=== PATIENT | male | born 1990 ===

== ENCOUNTER 2016-12-06 17:30 | Inpatient (IN) | payer BC, MEDICAID, OTHER ==
[2016-12-06 17:31] VITALS: BMI 28.2
[2016-12-06 17:56] VITALS: RESP 20
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
[2016-12-06 18:58] LABS: BASO # 0.2 K/uL (0.0-0.2); BASO % 0.8 % (0.0-2.0); EOS % 0.2 % (0.0-4.0); HEMATOCRIT 39.9 % (35.0-51.0); LYMPH # 2.4 K/uL (1.0-4.3); LYMPH % 12.1 % (20.0-40.0); MEAN CELL VOLUME 86.9 fL (80.0-94.0); MEAN CORPUSCULAR HEMOGLOBIN 30.1 pg (27.0-31.0); MEAN CORPUSCULAR HGB CONC 34.7 g/dL (33.0-37.0); MEAN PLATELET VOLUME 7.9 fL (7.2-11.7); MONO # 2.3 K/uL (0.0-0.8); MONO % 11.4 % (0.0-10.0); RED CELL DISTRIBUTION WIDTH 12.8 % (11.5-14.5)
[2016-12-06 19:05] LABS: CHLORIDE 93 mmol/L (98-107); POTASSIUM 3.7 mmol/L (3.6-5.2); SODIUM 131 mmol/L (132-148)
[2016-12-06 19:07] LABS: ALB/GLOB RATIO 1.5 (1.0-2.1); AST/SGOT 275 U/L (17-59); BILIRUBIN,TOTAL 1.5 mg/dL (0.2-1.3); CARBON DIOXIDE 20 mmol/L (22-30); GFR AFRICAN-AMERICAN > 60; TOTAL PROTEIN 7.6 g/dL (6.3-8.3); URINE BILIRUBIN NEGATIVE (NEGATIVE); URINE BLOOD 1+ (NEGATIVE); URINE COLOR Yellow (YELLOW); URINE GLUCOSE (UA) NORMAL (Normal); URINE KETONE 1+ mg/dL (NEGATIVE); URINE LEUKOCYTE ESTERASE NEG Leu/uL (Negative); URINE PROTEIN NEGATIVE (NEGATIVE); URINE UROBILINOGEN NORMAL mg/dL (0.2-1.0); WBC URINE < 1 /hpf (0-5)
[2016-12-06 19:08] LABS: ALKALINE PHOSPHATASE 72 U/L (38-126); ALT/SGPT 102 U/L (21-72); BLOOD UREA NITROGEN 12 mg/dL (9-20); CALCIUM 9.2 mg/dl (8.6-10.4); GLUCOSE,RANDOM 79 mg/dL (75-110)
[2016-12-06] MEDS: Divalproex 500 mg DR Tab PO SCH (23:51)
[2016-12-07 07:27] LABS: HEMATOCRIT 39.7 % (35.0-51.0); MEAN CELL VOLUME 87.6 fL (80.0-94.0); MEAN CORPUSCULAR HGB CONC 34.2 g/dL (33.0-37.0); MEAN PLATELET VOLUME 7.7 fL (7.2-11.7)
[2016-12-07 07:34] LABS: WHITE BLOOD COUNT 9.9 K/uL (4.8-10.8)
[2016-12-07 07:36] LABS: CHLORIDE 96 mmol/L (98-107); SODIUM 134 mmol/L (132-148)
[2016-12-07 07:37] LABS: POTASSIUM 3.7 mmol/L (3.6-5.2)
[2016-12-07 07:38] LABS: GFR AFRICAN-AMERICAN > 60
[2016-12-07 07:39] LABS: ALB/GLOB RATIO 1.3 (1.0-2.1); ALKALINE PHOSPHATASE 64 U/L (38-126); AST/SGOT 155 U/L (17-59); BILIRUBIN,TOTAL 1.2 mg/dL (0.2-1.3); BLOOD UREA NITROGEN 12 mg/dL (9-20); CARBON DIOXIDE 26 mmol/L (22-30); GLUCOSE,RANDOM 87 mg/dL (75-110); TOTAL PROTEIN 7.1 g/dL (6.3-8.3)
[2016-12-07 07:40] LABS: ALT/SGPT 85 U/L (21-72); CALCIUM 8.7 mg/dl (8.6-10.4)
[2016-12-07] MEDS: Divalproex 500 mg DR Tab PO SCH ×2 (10:53→18:09)
--- NOTE | 2016-12-07 10:53 | RAD ---
HISTORY: Pneumonia COMPARISON: 09/07/2013 TECHNIQUE: Chest PA and lateral FINDINGS: LUNGS: No active pulmonary disease. PLEURA: No significant pleural effusion identified. No pneumothorax apparent. CARDIOVASCULAR: Normal. OSSEOUS STRUCTURES: No significant abnormalities. VISUALIZED UPPER ABDOMEN: Normal. OTHER FINDINGS: None. IMPRESSION: No active disease.
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
--- NOTE | 2016-12-07 22:47 | CP.PCM.HP ---
Present on Admission - Present on Admission Any Indicators Present on Admission: No Past Patient History - Infectious Disease Hx of Infectious Diseases: None - Tetanus Immunizations Tetanus Immunization: Unknown - Past Medical History & Family History Past Medical History?: Yes - Past Social History Smoking Status: Heavy Smoker > 10 Cigarettes Daily - CARDIAC Hx Cardiac Disorders: No - PULMONARY Hx Respiratory Disorders: No - NEUROLOGICAL Hx Neurological Disorder: Yes Hx Seizures: Yes - HEENT Hx HEENT Problems: No - RENAL Hx Chronic Kidney Disease: No - ENDOCRINE/METABOLIC Hx Endocrine Disorders: No - HEMATOLOGICAL/ONCOLOGICAL Hx Blood Disorders: No - INTEGUMENTARY Hx Dermatological Problems: Yes Hx Hammer: Yes - MUSCULOSKELETAL/RHEUMATOLOGICAL Hx Musculoskeletal Disorders: No Hx Falls: No - GASTROINTESTINAL Hx Gastrointestinal Disorders: No - GENITOURINARY/GYNECOLOGICAL Hx Genitourinary Disorders: No - PSYCHIATRIC Hx Psychophysiologic Disorder: Yes Hx Substance Use: Yes (pt reported thta he quitted) - SURGICAL HISTORY Hx Surgeries: Yes Hx Herniorrhaphy: Yes - ANESTHESIA Hx Anesthesia: Yes Hx Anesthesia Reactions: No Hx Malignant Hyperthermia: No Meds Allergies/Adverse Reactions: Allergies Allergy/AdvReac Type Severity Reaction Status Date / Time No Known Allergies Allergy Verified 12/06/16 17:45 Results - Vital Signs Recent Vital Signs: Last Vital Signs Temp 98.3 F 12/07/16 15:30 Pulse 93 H 12/07/16 15:30 Resp 20 12/07/16 15:30 BP 132/81 12/07/16 15:30 Pulse Ox 96 12/07/16 15:30 - Labs Result Diagrams: 12/07/16 07:16 12/07/16 07:16 Labs: Laboratory Results - last 24 hr 12/07/16 12/07/16 07:16 07:16 WBC 9.9 D RBC 4.53 Hgb 13.6 Hct 39.7 MCV 87.6 MCH 30.0 MCHC 34.2 RDW 13.0 Plt Count 200 MPV 7.7 Sodium 134 Potassium 3.7 Chloride 96 L Carbon Dioxide 26 Anion Gap 16 BUN 12 Creatinine 0.8 Est GFR ( Amer) > 60 Est GFR (Non-Af Amer) > 60 Random Glucose 87 Calcium 8.7 Total Bilirubin 1.2 AST 155 H D ALT 85 H Alkaline Phosphatase 64 Total Protein 7.1 Albumin 4.0 Globulin 3.1 Albumin/Globulin Ratio 1.3
[2016-12-08] MEDS: Divalproex 500 mg DR Tab PO SCH ×2 (09:37→18:07)
[2016-12-08] MEDS ORDERED: Vitamins A & D Oint UD Foilpak TOP PRN (09:45)
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
[2016-12-08 17:39] VITALS: BP 151/77; PULSE 94; TEMP 99.2; O2SAT 96
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
[2016-12-09] MEDS ORDERED: Pneumococcal 23-Valent Vaccine IM ONE (10:00)
== END 2016-12-08 18:30 | disposition home or self-care (01) | DRG 889 ==
LOC: C.ER 17:30 → C.9E 22:15 → C.3T 22:54
PROVIDERS: ADMIT Internal Medicine; ATTEND Internal Medicine
DX: G40.909 Epilepsy, unspecified, not intractable, without status epilepticus (principal); F15.90 Other stimulant use, unspecified, uncomplicated; T42.6X6A Underdosing of other antiepileptic and sedative-hypnotic drugs, initial encounter; Z91.128 Patient's intentional underdosing of medication regimen for other reason; F17.210 Nicotine dependence, cigarettes, uncomplicated

== ENCOUNTER 2017-10-02 09:21 | Inpatient (IN) | payer MEDICARE, MEDICAID ==
[2017-10-02 09:21] VITALS: BMI 28.2
[2017-10-02] MEDS ORDERED: levETIRAcetam 500 MG in Sodium Chloride 0.9% 100 ML IVPB STA (09:46)
[2017-10-02 10:10] LABS: BASO # 0.1 K/uL (0.0-0.2); BASO % 0.5 % (0.0-2.0); EOS # 0.2 K/uL (0.0-0.7); EOS % 1.3 % (0.0-4.0); HEMOGLOBIN 14.8 g/dL (12.0-18.0); LYMPH # 1.4 K/uL (1.0-4.3); LYMPH % 9.7 % (20.0-40.0); MEAN CORPUSCULAR HEMOGLOBIN 30.9 pg (27.0-31.0); MEAN CORPUSCULAR HGB CONC 34.3 g/dL (33.0-37.0); MONO # 0.9 K/uL (0.0-0.8); MONO % 6.4 % (0.0-10.0); NEUT # 12.2 K/uL (1.8-7.0); NEUT % 82.1 % (50.0-75.0); NRBC % 0.1 % (0.0-2.0); PLATELET COUNT 277 K/uL (130-400); RBC 4.79 Mil/uL (4.40-5.90); RED CELL DISTRIBUTION WIDTH 13.7 % (11.5-14.5)
[2017-10-02 10:13] LABS: MEAN CELL VOLUME 90.1 fL (80.0-94.0); WHITE BLOOD COUNT 14.9 K/uL (4.8-10.8)
--- NOTE | 2017-10-02 10:19 | RAD ---
PROCEDURE: Radiographs of the Right Shoulder HISTORY: seizure COMPARISON: No prior. FINDINGS: BONES: Anterior dislocation at glenohumeral articulation with large displaced greater tuberosity fracture fragment. . JOINTS: Acromioclavicular joint preserved. SOFT TISSUES: Normal. OTHER FINDINGS: None. IMPRESSION: Anterior glenohumeral dislocation with greater tuberosity fracture enlarged displaced fragment.
[2017-10-02 10:22] LABS: ALB/GLOB RATIO 1.4 (1.0-2.1); ALBUMIN 4.8 g/dL (3.5-5.0); ALT/SGPT 32 U/L (21-72); AST/SGOT 34 U/L (17-59); BLOOD UREA NITROGEN 8 mg/dL (9-20); CALCIUM 9.7 mg/dl (8.6-10.4); GFR AFRICAN-AMERICAN > 60; GFR NON-AFRICAN AMERICAN > 60
[2017-10-02 10:28] LABS: LYMPHOCYTE 5 % (20-40); MONOCYTE 4 % (0-10); NEUTROPHIL 91 % (50-75); TOTAL CELLS COUNTED 100
[2017-10-02 10:31] LABS: PLATELET ESTIMATE NORMAL (NORMAL)
[2017-10-02] MEDS ORDERED: Morphine 4 MG/ML VIAL IV STA (11:05)
[2017-10-02] MEDS ORDERED: Morphine 4 MG/ML VIAL ONE (11:09)
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
[2017-10-02] MEDS ORDERED: Valproate 1,000 MG in Sodium Chloride 0.9% 100 ML IVPB ONE (12:12)
--- NOTE | 2017-10-02 12:38 | CT ---
PROCEDURE: CT HEAD WITHOUT CONTRAST. HISTORY: dizziness COMPARISON: 12/17/2019 50 TECHNIQUE: Axial computed tomography images were obtained through the head/brain without intravenous contrast. Radiation dose: Total exam DLP = 1573.86 mGy-cm. This CT exam was performed using one or more of the following dose reduction techniques: Automated exposure control, adjustment of the mA and/or kV according to patient size, and/or use of iterative reconstruction technique. FINDINGS: HEMORRHAGE: No intracranial hemorrhage. BRAIN: No mass effect or edema. No atrophy or chronic microvascular ischemic changes. VENTRICLES: Unremarkable. No hydrocephalus. CALVARIUM: Unremarkable. PARANASAL SINUSES: Unremarkable as visualized. No significant inflammatory changes. MASTOID AIR CELLS: Unremarkable as visualized. No inflammatory changes. OTHER FINDINGS: None. IMPRESSION: Normal CT of the Head. No intracranial mass, hemorrhage or evidence of acute infarct. No interval change.
[2017-10-02 13:10] LABS: PROTHROMBIN TIME 11.3 SECONDS (9.7-12.2)
--- NOTE | 2017-10-02 13:12 | CP.PCM.CON ---
History of Present Illness - History of Present Illness History of Present Illness: 27 yr old male with pmh of epilepsy, syndrome not known as of yet, who has a history of compliance with keppra and depakote, who is here due to non compliance with medications. states clearly that he did not take his medications and does not take them when he drinks alcohol. He came into the ER after having had a large generalized seizure, during which he suffered right humeral fracture, now requiring possible fixation, and right shoulder dislocation. PMH/PSH: Epilepsy FH/SH: noncontributory. All: nkda Meds: depakote, keppra--dose as per computer on exam: Normal neurological examination. Past Patient History - Infectious Disease Hx of Infectious Diseases: None - Tetanus Immunizations Tetanus Immunization: Unknown - Past Medical History & Family History Past Medical History?: Yes - Past Social History Smoking Status: Heavy Smoker > 10 Cigarettes Daily - CARDIAC Hx Pacemaker: No - PULMONARY Hx Respiratory Disorders: No - NEUROLOGICAL Hx Seizures: Yes - HEENT Hx HEENT Problems: No - RENAL Hx Chronic Kidney Disease: No - ENDOCRINE/METABOLIC Hx Endocrine Disorders: No - HEMATOLOGICAL/ONCOLOGICAL Hx Blood Disorders: No - INTEGUMENTARY Hx Dermatological Problems: Yes Hx Hammer: Yes - MUSCULOSKELETAL/RHEUMATOLOGICAL Hx Musculoskeletal Disorders: No Hx Falls: No - GASTROINTESTINAL Hx Gastrointestinal Disorders: No - GENITOURINARY/GYNECOLOGICAL Hx Genitourinary Disorders: No - PSYCHIATRIC Hx Schizophrenia: Yes Hx Substance Use: Yes (pt reported thta he quitted) - SURGICAL HISTORY Hx Surgeries: Yes Hx Herniorrhaphy: Yes - ANESTHESIA Hx Anesthesia: Yes Hx Anesthesia Reactions: No Hx Malignant Hyperthermia: No Meds Allergies/Adverse Reactions: Allergies Allergy/AdvReac Type Severity Reaction Status Date / Time No Known Allergies Allergy Verified 10/02/17 09:31 - Medications Medications: Current Medications Benztropine Mesylate (Cogentin) 2 mg PO BID GIDEON Divalproex Sodium (Depakote Dr) 500 mg PO BID GIDEON Valproate Sodium 1,000 mg/ (Sodium Chloride) 110 mls @ 100 mls/hr IVPB ONCE ONE Stop: 10/02/17 13:17 Ketorolac Tromethamine (Toradol) 30 mg IV Q6 PRN PRN Reason: Pain, severe (8-10) Ketorolac Tromethamine (Toradol) 15 mg IVP Q6 PRN PRN Reason: Pain, moderate (4-7) Levetiracetam (Keppra) 500 mg PO BID GIDEON Nicotine (Nicoderm Cq) 1 patch TD DAILY GIDEON Results - Vital Signs Recent Vital Signs: Last Vital Signs Temp 97.7 F 10/02/17 09:32 Pulse 72 10/02/17 12:54 Resp 16 10/02/17 12:54 BP 132/103 H 10/02/17 12:54 Pulse Ox 98 10/02/17 12:56 - Labs Result Diagrams: 10/02/17 10:04 10/02/17 10:04 Labs: Laboratory Results - last 24 hr 10/02/17 10/02/17 10/02/17 10:04 10:04 10:04 WBC 14.9 H D RBC 4.79 Hgb 14.8 Hct 43.2 MCV 90.1 D MCH 30.9 MCHC 34.3 RDW 13.7 Plt Count 277 MPV 8.0 Neut % (Auto) 82.1 H Lymph % (Auto) 9.7 L [place] % (Auto) 6.4 Eos % (Auto) 1.3 Baso % (Auto) 0.5 Neut # (Auto) 12.2 H Lymph # (Auto) 1.4 [place] # (Auto) 0.9 H Eos # (Auto) 0.2 Baso # (Auto) 0.1 Neutrophils % (Manual) 91 H Lymphocytes % (Manual) 5 L Monocytes % (Manual) 4 Platelet Estimate Normal RBC Morphology Normal Sodium 139 Potassium 4.2 Chloride 101 Carbon Dioxide 19 L Anion Gap 23 H BUN 8 L Creatinine 1.0 Est GFR ( Amer) > 60 Est GFR (Non-Af Amer) > 60 POC Glucose (mg/dL) Random Glucose 144 H Calcium 9.7 Total Bilirubin 0.8 AST 34 ALT 32 Alkaline Phosphatase 96 Total Creatine Kinase 662 H Total Protein 8.1 Albumin 4.8 Globulin 3.3 Albumin/Globulin Ratio 1.4 Valproic Acid < 10.0 L 10/02/17 10:07 WBC RBC Hgb Hct MCV MCH MCHC RDW Plt Count MPV Neut % (Auto) Lymph % (Auto) [place] % (Auto) Eos % (Auto) Baso % (Auto) Neut # (Auto) Lymph # (Auto) [place] # (Auto) Eos # (Auto) Baso # (Auto) Neutrophils % (Manual) Lymphocytes % (Manual) Monocytes % (Manual) Platelet Estimate RBC Morphology Sodium Potassium Chloride Carbon Dioxide Anion Gap BUN Creatinine Est GFR ( Amer) Est GFR (Non-Af Amer) POC Glucose (mg/dL) 128 H Random Glucose Calcium Total Bilirubin AST ALT Alkaline Phosphatase Total Creatine Kinase Total Protein Albumin Globulin Albumin/Globulin Ratio Valproic Acid - Imaging and Cardiology CT scan - head Status: Image reviewed by me, Report reviewed by me (ct head normal. ) Assessment & Plan - Assessment and Plan (Free Text) Assessment: 27 yr old male with known epilepsy, who is here after having several seizures due to noncompliance. We will load him with antiepileptic medications, check levels and restart his home meds. Plan: 1. Continue on depakote 500 mg bid 2. Continue on keppra 500 mg bid 3. it would be advisable for patient to be on one medication, depakote. However , he does not want to change his regimen. 4. EEG. Thank you for this interesting consult. Md Kizzy, DPN
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
--- NOTE | 2017-10-02 13:56 | CP.PCM.CON ---
<Charissa Lincoln - Last Filed: 10/02/17 15:42> History of Present Illness - History of Present Illness History of Present Illness: ICU consult note: Patient is a 27 year old male with a past medical history of Epilepsy, Hammer and Schizophrenia who presented to the ED by EMS for witnessed seizure. Patient stated he stopped taking his home medications because he has been drinking alcohol and did not want to mix that with his medications. When patient arrived, his right arm was in a sling. When asked how he injured his shoulder, he stated he believes he injured his shoulder during a seizure. He denied focal deficits, headache, vision changes, fever, chills, vomiting, shortness of breath, chest pain, incontinence. He denied auditory or visual hallucinations. ICU was called to evaluate the patient in the ED. Patient had a witnessed seizure in the ED was is currently post-ictal. Will admit to the ICU for closer monitoring. ED course: Valproic Acid 1000mg IV x1, Keppra 500mg IV x 1, Ativan 2mg IVP x 1, Torodol 30mg IVP, Morphine 4mg IVP PMD: Dr Conrad Casas Allergies: NKDA Past Medical Hx: Epilepsy, Schizophrenia, Alcohol abuse Medications: Keppra 500mg PO BID, Depakote DR 500mg PO BID, Cogentin 2mg PO BID Past Surgical Hx: Left inguinal hernia repair Social Hx: smokes 1ppd for last 10 years, drinks "a couple" of beers daily, occasional marijuana use, denies other illicit drugs, lives alone, collects social security due to epilepsy Family Hx: Denies Code Status: Full Code Past Patient History - Infectious Disease Hx of Infectious Diseases: None - Tetanus Immunizations Tetanus Immunization: Unknown - Past Medical History & Family History Past Medical History?: Yes - Past Social History Smoking Status: Heavy Smoker > 10 Cigarettes Daily - CARDIAC Hx Pacemaker: No - PULMONARY Hx Respiratory Disorders: No - NEUROLOGICAL Hx Seizures: Yes - HEENT Hx HEENT Problems: No - RENAL Hx Chronic Kidney Disease: No - ENDOCRINE/METABOLIC Hx Endocrine Disorders: No - HEMATOLOGICAL/ONCOLOGICAL Hx Blood Disorders: No - INTEGUMENTARY Hx Dermatological Problems: Yes Hx Hammer: Yes - MUSCULOSKELETAL/RHEUMATOLOGICAL Hx Musculoskeletal Disorders: No Hx Falls: No - GASTROINTESTINAL Hx Gastrointestinal Disorders: No - GENITOURINARY/GYNECOLOGICAL Hx Genitourinary Disorders: No - PSYCHIATRIC Hx Schizophrenia: Yes Hx Substance Use: Yes (pt reported thta he quitted) - SURGICAL HISTORY Hx Surgeries: Yes Hx Herniorrhaphy: Yes - ANESTHESIA Hx Anesthesia: Yes Hx Anesthesia Reactions: No Hx Malignant Hyperthermia: No Meds Allergies/Adverse Reactions: Allergies Allergy/AdvReac Type Severity Reaction Status Date / Time No Known Allergies Allergy Verified 10/02/17 09:31 - Medications Medications: Current Medications Benztropine Mesylate (Cogentin) 2 mg PO BID [facility] Divalproex Sodium (Depakote Dr) 500 mg PO BID [facility] Folic Acid (Folic Acid) 1 mg PO DAILY [facility] Ketorolac Tromethamine (Toradol) 30 mg IV Q6 PRN PRN Reason: Pain, severe (8-10) Ketorolac Tromethamine (Toradol) 15 mg IVP Q6 PRN PRN Reason: Pain, moderate (4-7) Levetiracetam (Keppra) 500 mg PO BID [facility] Lorazepam (Ativan) 2 mg IVP Q6H PRN PRN Reason: Seizure activity Multivitamins (Hexavitamin) 1 tab PO DAILY [facility] Nicotine (Nicoderm Cq) 1 patch TD DAILY [facility] Thiamine HCl (Vitamin B1 Tab) 100 mg PO DAILY [facility] Physical Exam - Constitutional Appears: No Acute Distress Additional comments: Post-ictal - Head Exam Head Exam: ATRAUMATIC, NORMAL INSPECTION - Eye Exam Eye Exam: EOMI, Normal appearance - ENT Exam ENT Exam: Mucous Membranes Moist - Respiratory Exam Respiratory Exam: Clear to Auscultation Bilateral, NORMAL BREATHING PATTERN. absent: Rales, Rhonchi, Wheezes - Cardiovascular Exam Cardiovascular Exam: REGULAR RHYTHM, +S1, +S2 - GI/Abdominal Exam GI & Abdominal Exam: Normal Bowel Sounds, Soft. absent: Rebound, Rigid, Tenderness - Extremities Exam Extremities exam: Positive for: normal inspection - Neurological Exam Additional comments: Post-ictal - Psychiatric Exam Additional comments: Unable to assess - Skin Skin Exam: Dry, Normal Color, Warm Results - Vital Signs Recent Vital Signs: Last Vital Signs Temp 97.7 F 10/02/17 09:32 Pulse 108 H 10/02/17 13:26 Resp 30 H 10/02/17 13:26 BP 166/101 H 10/02/17 13:26 Pulse Ox 99 10/02/17 13:26 - Labs Result Diagrams: 10/02/17 10:04 10/02/17 10:04 Labs: Laboratory Results - last 24 hr 10/02/17 10/02/17 10/02/17 10:04 10:04 10:04 WBC 14.9 H D RBC 4.79 Hgb 14.8 Hct 43.2 MCV 90.1 D MCH 30.9 MCHC 34.3 RDW 13.7 Plt Count 277 MPV 8.0 Neut % (Auto) 82.1 H Lymph % (Auto) 9.7 L Desha % (Auto) 6.4 Eos % (Auto) 1.3 Baso % (Auto) 0.5 Neut # (Auto) 12.2 H Lymph # (Auto) 1.4 Desha # (Auto) 0.9 H Eos # (Auto) 0.2 Baso # (Auto) 0.1 Neutrophils % (Manual) 91 H Lymphocytes % (Manual) 5 L Monocytes % (Manual) 4 Platelet Estimate Normal RBC Morphology Normal PT INR APTT Sodium 139 Potassium 4.2 Chloride 101 Carbon Dioxide 19 L Anion Gap 23 H BUN 8 L Creatinine 1.0 Est GFR ( Amer) > 60 Est GFR (Non-Af Amer) > 60 POC Glucose (mg/dL) Random Glucose 144 H Calcium 9.7 Total Bilirubin 0.8 AST 34 ALT 32 Alkaline Phosphatase 96 Total Creatine Kinase 662 H Total Protein 8.1 Albumin 4.8 Globulin 3.3 Albumin/Globulin Ratio 1.4 Valproic Acid < 10.0 L 10/02/17 10/02/17 10/02/17 10:07 12:58 13:41 WBC RBC Hgb Hct MCV MCH MCHC RDW Plt Count MPV Neut % (Auto) Lymph % (Auto) Desha % (Auto) Eos % (Auto) Baso % (Auto) Neut # (Auto) Lymph # (Auto) Desha # (Auto) Eos # (Auto) Baso # (Auto) Neutrophils % (Manual) Lymphocytes % (Manual) Monocytes % (Manual) Platelet Estimate RBC Morphology PT 11.3 INR 1.0 APTT 25 Sodium Potassium Chloride Carbon Dioxide Anion Gap BUN Creatinine Est GFR ( Amer) Est GFR (Non-Af Amer) POC Glucose (mg/dL) 128 H 112 H Random Glucose Calcium Total Bilirubin AST ALT Alkaline Phosphatase Total Creatine Kinase Total Protein Albumin Globulin Albumin/Globulin Ratio Valproic Acid Assessment & Plan - Assessment and Plan (Free Text) Assessment: Patient is a 27 year old male with past medical history of Epilepsy, medication non-compliance, schizophrenia who presented to the ED via EMS for witnessed seizure. While in the ED, patient had another witnessed seizure. Recieved Ativan 2mg x 1. Currently in post-ictal state. Will admit to the ICU for closer monitoring. Neurology: -Patient currently in post ictal state -Patient is on Depakote 500mg BID, Valproic Acid 500mg PO BID at home -Reports that he has been non-complaint with his medications -In the ED, received a bolus of Valproic Acid 1000mg x 1 -Valproic level <10 on admission, f/u am Valproic level -Continue Keppra 500mg PO BID -Continue Depakote DR 500mg PO BID -Ativan 2mg IVP Q6H PRN for seizure activity -CT head: No intracranial mass, hemorrhage or evidence of acute infarct, no interval change -Seizure precautions, aspiration precautions, fall precautions -Continue Neuro checks -EEG ordered -Neurology on consult, Dr Jaramillo, help appreciated Cardiology: -No acute issues at this time Respiratory: -CXR ordered, f/u official read Renal: -No acute issues at this time Heme/onc: -No acute issues at this time Musculoskeletal: -Patient with Rhabdomyolysis -CPK 662 on admission -Continue IV fluids -F/U AM creatinine level -Right shoulder XRAY: anterior glenohumeral dislocation with greater tuberosity fracture enlarged displaced fragment -Pain control: Ketorolac 15mg IVP Q6H PRN for moderate pain, Ketorolac 30mg IVP Q6H PRN for severe pain -If medically stable, plan for OR tomorrow -Orthopedic surgery on consult, Dr Osorio, help appreciated Infectious Disease: -Patient with elevated WBC, currently afebrile -F/U urine cx, blood cx Psychiatry: -Patient with history of schizophrenia -Currently denies auditory/visual hallucinations -Continue Cogentin 2mg PO BID -F/U alcohol level, UDS -Continue Thiamine 100mg PO daily, Multivitamins 1 tab PO daily, Folic acid 1mg PO daily -Ativan 2mg IVP Q6H PRN for withdrawal symptoms -CIWA protocol -Seizure/aspiration precautions -Hx of tobacco dependence, Nicotine patch ordered GI/DVT ppx: -SCDs -No GI ppx indicated at this time <Ronald Swanson S - Last Filed: 10/02/17 17:54> Meds - Medications Medications: Current Medications Benztropine Mesylate (Cogentin) 2 mg PO BID [facility] Divalproex Sodium (Depakote Dr) 500 mg PO BID [facility] Folic Acid (Folic Acid) 1 mg PO DAILY [facility] Lactated Ringer's (Lactated Ringer's) 1,000 mls @ 125 mls/hr IV .Q8H [facility] Last Admin: 10/02/17 14:45 Dose: 125 mls/hr Ketorolac Tromethamine (Toradol) 30 mg IV Q6 PRN PRN Reason: Pain, severe (8-10) Ketorolac Tromethamine (Toradol) 15 mg IVP Q6 PRN PRN Reason: Pain, moderate (4-7) Levetiracetam (Keppra) 500 mg PO BID [facility] Lorazepam (Ativan) 2 mg IVP Q4H PRN PRN Reason: Seizure activity Multivitamins (Hexavitamin) 1 tab PO DAILY [facility] Last Admin: 10/02/17 14:45 Dose: Not Given Nicotine (Nicoderm Cq) 1 patch TD DAILY [facility] Last Admin: 10/02/17 15:03 Dose: 1 patch Pneumococcal Polyvalent Vaccine (Pneumovax 23 Vaccine) 0.5 ml IM .ONCE ONE Stop: 10/04/17 10:01 Thiamine HCl (Vitamin B1 Tab) 100 mg PO DAILY [facility] Last Admin: 10/02/17 14:45 Dose: Not Given Results - Vital Signs Recent Vital Signs: Last Vital Signs Temp 98.5 F 10/02/17 16:00 Pulse 78 10/02/17 17:10 Resp 22 10/02/17 17:10 BP 148/89 10/02/17 16:27 Pulse Ox 97 10/02/17 17:10 - Labs Result Diagrams: 10/02/17 10:04 10/02/17 10:04 Labs: Laboratory Results - last 24 hr 10/02/17 10/02/17 10/02/17 10:04 10:04 10:04 WBC 14.9 H D RBC 4.79 Hgb 14.8 Hct 43.2 MCV 90.1 D MCH 30.9 MCHC 34.3 RDW 13.7 Plt Count 277 MPV 8.0 Neut % (Auto) 82.1 H Lymph % (Auto) 9.7 L Desha % (Auto) 6.4 Eos % (Auto) 1.3 Baso % (Auto) 0.5 Neut # (Auto) 12.2 H Lymph # (Auto) 1.4 Desha # (Auto) 0.9 H Eos # (Auto) 0.2 Baso # (Auto) 0.1 Neutrophils % (Manual) 91 H Lymphocytes % (Manual) 5 L Monocytes % (Manual) 4 Platelet Estimate Normal RBC Morphology Normal PT INR APTT Sodium 139 Potassium 4.2 Chloride 101 Carbon Dioxide 19 L Anion Gap 23 H BUN 8 L Creatinine 1.0 Est GFR ( Amer) > 60 Est GFR (Non-Af Amer) > 60 POC Glucose (mg/dL) Random Glucose 144 H Calcium 9.7 Total Bilirubin 0.8 AST 34 ALT 32 Alkaline Phosphatase 96 Total Creatine Kinase 662 H Total Protein 8.1 Albumin 4.8 Globulin 3.3 Albumin/Globulin Ratio 1.4 Urine Opiates Screen Urine Methadone Screen Ur Barbiturates Screen Valproic Acid < 10.0 L Ur Phencyclidine Scrn Ur Amphetamines Screen U Benzodiazepines Scrn U Oth Cocaine Metabols U Cannabinoids Screen Alcohol, Quantitative 10/02/17 10/02/17 10/02/17 10:07 12:58 13:41 WBC RBC Hgb Hct MCV MCH MCHC RDW Plt Count MPV Neut % (Auto) Lymph % (Auto) Desha % (Auto) Eos % (Auto) Baso % (Auto) Neut # (Auto) Lymph # (Auto) Desha # (Auto) Eos # (Auto) Baso # (Auto) Neutrophils % (Manual) Lymphocytes % (Manual) Monocytes % (Manual) Platelet Estimate RBC Morphology PT 11.3 INR 1.0 APTT 25 Sodium Potassium Chloride Carbon Dioxide Anion Gap BUN Creatinine Est GFR ( Amer) Est GFR (Non-Af Amer) POC Glucose (mg/dL) 128 H 112 H Random Glucose Calcium Total Bilirubin AST ALT Alkaline Phosphatase Total Creatine Kinase Total Protein Albumin Globulin Albumin/Globulin Ratio Urine Opiates Screen Urine Methadone Screen Ur Barbiturates Screen Valproic Acid Ur Phencyclidine Scrn Ur Amphetamines Screen U Benzodiazepines Scrn U Oth Cocaine Metabols U Cannabinoids Screen Alcohol, Quantitative 10/02/17 10/02/17 10/02/17 14:04 14:16 16:12 WBC RBC Hgb Hct MCV MCH MCHC RDW Plt Count MPV Neut % (Auto) Lymph % (Auto) Desha % (Auto) Eos % (Auto) Baso % (Auto) Neut # (Auto) Lymph # (Auto) Desha # (Auto) Eos # (Auto) Baso # (Auto) Neutrophils % (Manual) Lymphocytes % (Manual) Monocytes % (Manual) Platelet Estimate RBC Morphology PT INR APTT Sodium Potassium Chloride Carbon Dioxide Anion Gap BUN Creatinine Est GFR ( Amer) Est GFR (Non-Af Amer) POC Glucose (mg/dL) 97 Random Glucose Calcium Total Bilirubin AST ALT Alkaline Phosphatase Total Creatine Kinase Total Protein Albumin Globulin Albumin/Globulin Ratio Urine Opiates Screen Positive H Urine Methadone Screen Negative Ur Barbiturates Screen Negative Valproic Acid Ur Phencyclidine Scrn Negative Ur Amphetamines Screen Negative U Benzodiazepines Scrn Negative U Oth Cocaine Metabols Positive H U Cannabinoids Screen Positive H Alcohol, Quantitative < 10 Attending/Attestation - Attestation I have personally seen and examined this patient.: Yes I have fully participated in the care of the patient.: Yes I have reviewed all pertinent clinical information: Yes Notes (Text): 10/02/17 17:53 patient seen and examined 27-year-old male with history of epilepsy, schizophrenia was admitted with witnessed seizures Patient has been drinking alcohol and stopped taking his medicines ICU observation CAT scan of the head negative Continue antiseizure medicine Neurology evaluation
[2017-10-02 14:31] LABS: BARBITURATES, UR NEGATIVE (NEGATIVE); BENZODIAZEPINES, UR NEGATIVE (NEGATIVE); PHENCYCLIDINE, UR NEGATIVE (NEGATIVE)
[2017-10-02] MEDS: Multiple Vitamins Tab PO SCH ×2 (14:45→17:51)
[2017-10-02] MEDS: Lactated Ringer's 1,000 ML IV SCH ×2 (14:45→23:00)
[2017-10-02 14:59] LABS: OPIATES, UR POSITIVE (NEGATIVE)
--- NOTE | 2017-10-02 15:23 | RAD ---
PROCEDURE: CHEST RADIOGRAPH, 1 VIEW HISTORY: pre-op COMPARISON: 12/06/2016 FINDINGS: LUNGS: Clear. PLEURA: No pneumothorax or pleural fluid seen. CARDIOVASCULAR: Normal. OSSEOUS STRUCTURES: No significant abnormalities. VISUALIZED UPPER ABDOMEN: Normal. OTHER FINDINGS: None. IMPRESSION: No active disease. No acute/significant interval changes.
[2017-10-02] MEDS: Divalproex 500 mg DR Tab PO SCH (17:51)
--- NOTE | 2017-10-02 21:41 | CT ---
EXAM: CT Right Upper Extremity Without Intravenous Contrast, Shoulder EXAM DATE/TIME: 10/02/2017 4:42 PM CLINICAL HISTORY: 27 years old, male; Injury or trauma; Fall; Initial encounter; Fracture, traumatic injury; Closed fracture; Humerus; Right; Neck of humerus; Additional info: Admitting diagnosis: Right shoulder dislocation TECHNIQUE: Axial computed tomography images of the right shoulder without intravenous contrast. All CT scans at this facility use one or more dose reduction techniques, viz.: automated exposure control; ma/kV adjustment per patient size (including targeted exams where dose is matched to indication; i.e. head); or iterative reconstruction technique. Coronal and sagittal reformatted images were created and reviewed. COMPARISON: There are no prior studies for comparison. FINDINGS: Bones/joints: Right clavicle is intact. Acromioclavicular joint is maintained. Scapula is intact. There is anterior subcoracoid dislocation of the right humerus. There is a comminuted fracture of the greater tuberosity. Major tuberosity fragment is just lateral to the glenoid. Visualized portions of the humeral shaft is intact. There are no rib fractures. Soft tissues: There is soft tissue swelling and bruising at the shoulder. Lung apices: Visualized right lung is clear. IMPRESSION: Anterior subcoracoid dislocation of the right shoulder with fracture of the greater tuberosity; soft tissue swelling and bruising of the shoulder
--- NOTE | 2017-10-03 06:27 | CP.PCM.PN ---
Subjective - Date & Time of Evaluation Date of Evaluation: 10/03/17 Time of Evaluation: 06:24 - Subjective Subjective: Mr. Fernandez was seen and examined at the bedside in ICU. He is alert, oriented in all spheres. He refused to cooperate during assessment. He is able to move left upper extremity and bilateral lower extremities. He can minimally move his right upper extremity with noticeable swelling in the right upper arm including the subclavian areas. He refused to put on the arm sling and verbalizes that he does not need to see or follow up with a neurologist. Ct of the head done 2017 showed no acute findings. There was no untoward events overnight. Objective - Vital Signs/Intake and Output Vital Signs (last 24 hours): Temp Pulse Resp BP Pulse Ox 98.8 F 96 H 17 137/95 H 90 L 10/03/17 04:00 10/03/17 04:10 10/03/17 04:10 10/03/17 03:25 10/03/17 00:10 Intake and Output: 10/02/17 10/03/17 18:59 06:59 Intake Total 500 1250 Output Total 300 0 Balance 200 1250 - Medications Medications: Current Medications Benztropine Mesylate (Cogentin) 2 mg PO BID [facility] Last Admin: 10/02/17 17:51 Dose: 2 mg Divalproex Sodium (Depakote Dr) 500 mg PO BID [facility] Last Admin: 10/02/17 17:51 Dose: 500 mg Folic Acid (Folic Acid) 1 mg PO DAILY [facility] Lactated Ringer's (Lactated Ringer's) 1,000 mls @ 125 mls/hr IV .Q8H [facility] Last Admin: 10/02/17 23:00 Dose: 125 mls/hr Ketorolac Tromethamine (Toradol) 30 mg IV Q6 PRN PRN Reason: Pain, severe (8-10) Last Admin: 10/03/17 03:11 Dose: 30 mg Ketorolac Tromethamine (Toradol) 15 mg IVP Q6 PRN PRN Reason: Pain, moderate (4-7) Levetiracetam (Keppra) 500 mg PO BID [facility] Last Admin: 10/02/17 17:51 Dose: 500 mg Lorazepam (Ativan) 2 mg IVP Q4H PRN PRN Reason: Seizure activity Multivitamins (Hexavitamin) 1 tab PO DAILY [facility] Last Admin: 10/02/17 17:51 Dose: 1 tab Nicotine (Nicoderm Cq) 1 patch TD DAILY [facility] Last Admin: 10/02/17 15:03 Dose: 1 patch Pneumococcal Polyvalent Vaccine (Pneumovax 23 Vaccine) 0.5 ml IM .ONCE ONE Stop: 10/04/17 10:01 Thiamine HCl (Vitamin B1 Tab) 100 mg PO DAILY [facility] Last Admin: 10/02/17 17:52 Dose: 100 mg - Labs Labs: 10/02/17 10:04 10/02/17 10:04 PT 11.3 SECONDS (9.7-12.2) 10/02/17 12:58 INR 1.0 10/02/17 12:58 APTT 25 SECONDS (21-34) 10/02/17 12:58 - Constitutional Appears: No Acute Distress - Head Exam Head Exam: NORMAL INSPECTION - Neurological Exam Neuro motor strength exam: Left Upper Extremity: 5, Right Upper Extremity: 2/1, Left Lower Extremity: 5, Right Lower Extremity: 5 Additional comments: He is alert, oriented, but refused to cooperate during assessment. Assessment and Plan (1) Seizure disorder Assessment & Plan: Case discussed with Dr. Jaramillo, continue all current medical regimen. Recommend repeat valproic level and liver enzymes. If valproic level remains below 50 to load the patient Valproic 1000 mg IVPB for one dose and continue current depakote dose. EEG pending. Status: Acute
[2017-10-03 06:29] LABS: BASO % 0.3 % (0.0-2.0); EOS # 0.1 K/uL (0.0-0.7); EOS % 0.9 % (0.0-4.0); LYMPH # 1.6 K/uL (1.0-4.3); LYMPH % 10.6 % (20.0-40.0); MEAN CELL VOLUME 90.8 fL (80.0-94.0); MEAN CORPUSCULAR HEMOGLOBIN 30.5 pg (27.0-31.0); MEAN CORPUSCULAR HGB CONC 33.6 g/dL (33.0-37.0); MEAN PLATELET VOLUME 7.9 fL (7.2-11.7); MONO # 1.8 K/uL (0.0-0.8); MONO % 11.7 % (0.0-10.0); NEUT # 11.7 K/uL (1.8-7.0); NEUT % 76.5 % (50.0-75.0); RBC 4.26 Mil/uL (4.40-5.90); RED CELL DISTRIBUTION WIDTH 13.6 % (11.5-14.5); WHITE BLOOD COUNT 15.3 K/uL (4.8-10.8)
[2017-10-03 07:06] LABS: ALB/GLOB RATIO 1.2 (1.0-2.1); ALT/SGPT 25 U/L (21-72); AST/SGOT 38 U/L (17-59); BLOOD UREA NITROGEN 10 mg/dL (9-20); GFR AFRICAN-AMERICAN > 60; GFR NON-AFRICAN AMERICAN > 60
--- NOTE | 2017-10-03 07:53 | CP.PCM.CON ---
History of Present Illness - History of Present Illness History of Present Illness: Orthopedic consultation Dr. Osorio 27M with H seizure disorder brought to ER by friend after seizure. Patient states that he was compliant with medication up until a few days ago when he stopped taking medication and was drinking alcohol. Patient had another seizure in the ER. Orthopedic consultation requested for right shoulder injury Patient complains of right shoulder pain and swelling, but patient is not sure when the shoulder dislocation occurred. He does not recall how it happened. Reportedly friend called ER after seizure, however the time period from the injury to presentation to the ER thought to be delayed much as 3 days as per history provided to Dr. Osorio by patient. Patient admits to hand weakness, which is new since shoulder injury. Patient states prior to this seizure he had been compliant with medication and had not had seizure for 2 years. +opiates, cocaine, and cannaboids on admission Review of Systems - Review of Systems Systems not reviewed;Unavailable: Uncooperative All systems: reviewed and no additional remarkable complaints except Review of Systems: patient uncooperative with exam - Cardiovascular Additional comments: No CP - Respiratory Additional comments: Denies SOB - Gastrointestinal Additional comments: denies n/v - Musculoskeletal Musculoskeletal: As Per HPI - Integumentary Additional comments: swelling and bruising - Neurological Neurological: As Per HPI - Hematologic/Lymphatic Hematologic: absent: As Per HPI, Easy Bleeding, Easy Bruising, Lymphadenopathy, Other Past Patient History - Infectious Disease Hx of Infectious Diseases: None - Tetanus Immunizations Tetanus Immunization: Unknown - Past Medical History & Family History Past Medical History?: Yes Past Family History: Reviewed and not pertinent - Past Social History Smoking Status: Heavy Smoker > 10 Cigarettes Daily - CARDIAC Hx Pacemaker: No - PULMONARY Hx Respiratory Disorders: No - NEUROLOGICAL Hx Seizures: Yes - HEENT Hx HEENT Problems: No - RENAL Hx Chronic Kidney Disease: No - ENDOCRINE/METABOLIC Hx Endocrine Disorders: No - HEMATOLOGICAL/ONCOLOGICAL Hx Blood Disorders: No - INTEGUMENTARY Hx Dermatological Problems: Yes Hx Hammer: Yes - MUSCULOSKELETAL/RHEUMATOLOGICAL Hx Musculoskeletal Disorders: No Hx Falls: No - GASTROINTESTINAL Hx Gastrointestinal Disorders: No - GENITOURINARY/GYNECOLOGICAL Hx Genitourinary Disorders: No - PSYCHIATRIC Hx Schizophrenia: Yes Hx Substance Use: Yes (pt reported thta he quitted) - SURGICAL HISTORY Hx Surgeries: Yes Hx Herniorrhaphy: Yes - ANESTHESIA Hx Anesthesia: Yes Hx Anesthesia Reactions: No Hx Malignant Hyperthermia: No Meds Allergies/Adverse Reactions: Allergies Allergy/AdvReac Type Severity Reaction Status Date / Time No Known Allergies Allergy Verified 10/02/17 09:31 - Medications Medications: Current Medications Benztropine Mesylate (Cogentin) 2 mg PO BID [facility] Last Admin: 10/02/17 17:51 Dose: 2 mg Divalproex Sodium (Depakote Dr) 500 mg PO BID [facility] Last Admin: 10/02/17 17:51 Dose: 500 mg Folic Acid (Folic Acid) 1 mg PO DAILY [facility] Lactated Ringer's (Lactated Ringer's) 1,000 mls @ 125 mls/hr IV .Q8H [facility] Last Admin: 10/02/17 23:00 Dose: 125 mls/hr Ketorolac Tromethamine (Toradol) 30 mg IV Q6 PRN PRN Reason: Pain, severe (8-10) Last Admin: 10/03/17 03:11 Dose: 30 mg Ketorolac Tromethamine (Toradol) 15 mg IVP Q6 PRN PRN Reason: Pain, moderate (4-7) Levetiracetam (Keppra) 500 mg PO BID [facility] Last Admin: 10/02/17 17:51 Dose: 500 mg Lorazepam (Ativan) 2 mg IVP Q4H PRN PRN Reason: Seizure activity Multivitamins (Hexavitamin) 1 tab PO DAILY [facility] Last Admin: 10/02/17 17:51 Dose: 1 tab Nicotine (Nicoderm Cq) 1 patch TD DAILY [facility] Last Admin: 10/02/17 15:03 Dose: 1 patch Pneumococcal Polyvalent Vaccine (Pneumovax 23 Vaccine) 0.5 ml IM .ONCE ONE Stop: 10/04/17 10:01 Thiamine HCl (Vitamin B1 Tab) 100 mg PO DAILY [facility] Last Admin: 10/02/17 17:52 Dose: 100 mg Physical Exam - Constitutional Appears: Well, No Acute Distress, Agitated - Head Exam Head Exam: ATRAUMATIC - Neck Exam Neck exam: Positive for: Normal Inspection - Respiratory Exam Respiratory Exam: NORMAL BREATHING PATTERN - Expanded Upper Extremities Exam Right Shoulder exam: dislocation, swelling Forearm Wrist exam: normal inspection Neuro motor exam: finger 2-5 abduction intact, thumb abduction, thumb IP flexion intact, thumb opposition intact Neurosensory exam: median nerve intact, ulnar nerve intact (patient unable to extend wrist/fingers, sensation intact to RUE) Vascular exam: radial pulse - Neurological Exam Neurological exam: Alert, Oriented x3 - Psychiatric Exam Psychiatric exam: Agitated - Skin Skin Exam: Dry, Intact, Warm Additional comments: Noted significant ecchymosis to right shoulder and axilla Results - Vital Signs Recent Vital Signs: Last Vital Signs Temp 98.8 F 10/03/17 04:00 Pulse 112 H 10/03/17 07:40 Resp 12 10/03/17 07:40 BP 124/86 10/03/17 06:11 Pulse Ox 98 10/03/17 07:45 - Labs Result Diagrams: 10/03/17 06:24 10/03/17 06:24 Labs: Laboratory Results - last 24 hr 10/02/17 10/02/17 10/02/17 10:04 10:04 10:04 WBC 14.9 H D RBC 4.79 Hgb 14.8 Hct 43.2 MCV 90.1 D MCH 30.9 MCHC 34.3 RDW 13.7 Plt Count 277 MPV 8.0 Neut % (Auto) 82.1 H Lymph % (Auto) 9.7 L Mcminn % (Auto) 6.4 Eos % (Auto) 1.3 Baso % (Auto) 0.5 Neut # (Auto) 12.2 H Lymph # (Auto) 1.4 Mcminn # (Auto) 0.9 H Eos # (Auto) 0.2 Baso # (Auto) 0.1 Neutrophils % (Manual) 91 H Lymphocytes % (Manual) 5 L Monocytes % (Manual) 4 Platelet Estimate Normal RBC Morphology Normal PT INR APTT Sodium 139 Potassium 4.2 Chloride 101 Carbon Dioxide 19 L Anion Gap 23 H BUN 8 L Creatinine 1.0 Est GFR ( Amer) > 60 Est GFR (Non-Af Amer) > 60 POC Glucose (mg/dL) Random Glucose 144 H Calcium 9.7 Phosphorus Magnesium Total Bilirubin 0.8 AST 34 ALT 32 Alkaline Phosphatase 96 Total Creatine Kinase 662 H Total Protein 8.1 Albumin 4.8 Globulin 3.3 Albumin/Globulin Ratio 1.4 Urine Opiates Screen Urine Methadone Screen Ur Barbiturates Screen Valproic Acid < 10.0 L Ur Phencyclidine Scrn Ur Amphetamines Screen U Benzodiazepines Scrn U Oth Cocaine Metabols U Cannabinoids Screen Alcohol, Quantitative Blood Type Antibody Screen 0310/02/17 10/02/17 10:07 12:58 13:41 WBC RBC Hgb Hct MCV MCH MCHC RDW Plt Count MPV Neut % (Auto) Lymph % (Auto) Mcminn % (Auto) Eos % (Auto) Baso % (Auto) Neut # (Auto) Lymph # (Auto) Mcminn # (Auto) Eos # (Auto) Baso # (Auto) Neutrophils % (Manual) Lymphocytes % (Manual) Monocytes % (Manual) Platelet Estimate RBC Morphology PT 11.3 INR 1.0 APTT 25 Sodium Potassium Chloride Carbon Dioxide Anion Gap BUN Creatinine Est GFR ( Amer) Est GFR (Non-Af Amer) POC Glucose (mg/dL) 128 H 112 H Random Glucose Calcium Phosphorus Magnesium Total Bilirubin AST ALT Alkaline Phosphatase Total Creatine Kinase Total Protein Albumin Globulin Albumin/Globulin Ratio Urine Opiates Screen Urine Methadone Screen Ur Barbiturates Screen Valproic Acid Ur Phencyclidine Scrn Ur Amphetamines Screen U Benzodiazepines Scrn U Oth Cocaine Metabols U Cannabinoids Screen Alcohol, Quantitative Blood Type Antibody Screen 10/02/17 10/02/17 10/02/17 14:04 14:16 16:12 WBC RBC Hgb Hct MCV MCH MCHC RDW Plt Count MPV Neut % (Auto) Lymph % (Auto) Mcminn % (Auto) Eos % (Auto) Baso % (Auto) Neut # (Auto) Lymph # (Auto) Mcminn # (Auto) Eos # (Auto) Baso # (Auto) Neutrophils % (Manual) Lymphocytes % (Manual) Monocytes % (Manual) Platelet Estimate RBC Morphology PT INR APTT Sodium Potassium Chloride Carbon Dioxide Anion Gap BUN Creatinine Est GFR ( Amer) Est GFR (Non-Af Amer) POC Glucose (mg/dL) 97 Random Glucose Calcium Phosphorus Magnesium Total Bilirubin AST ALT Alkaline Phosphatase Total Creatine Kinase Total Protein Albumin Globulin Albumin/Globulin Ratio Urine Opiates Screen Positive H Urine Methadone Screen Negative Ur Barbiturates Screen Negative Valproic Acid Ur Phencyclidine Scrn Negative Ur Amphetamines Screen Negative U Benzodiazepines Scrn Negative U Oth Cocaine Metabols Positive H U Cannabinoids Screen Positive H Alcohol, Quantitative < 10 Blood Type Antibody Screen 10/03/17 10/03/17 10/03/17 04:00 06:24 06:24 WBC 15.3 H RBC 4.26 L Hgb 13.0 Hct 38.7 MCV 90.8 MCH 30.5 MCHC 33.6 RDW 13.6 Plt Count 238 MPV 7.9 Neut % (Auto) 76.5 H Lymph % (Auto) 10.6 L Mcminn % (Auto) 11.7 H Eos % (Auto) 0.9 Baso % (Auto) 0.3 Neut # (Auto) 11.7 H Lymph # (Auto) 1.6 Mcminn # (Auto) 1.8 H Eos # (Auto) 0.1 Baso # (Auto) 0.0 Neutrophils % (Manual) Lymphocytes % (Manual) Monocytes % (Manual) Platelet Estimate RBC Morphology PT INR APTT Sodium 138 Potassium 4.8 Chloride 102 Carbon Dioxide 24 Anion Gap 18 BUN 10 Creatinine 1.1 Est GFR ( Amer) > 60 Est GFR (Non-Af Amer) > 60 POC Glucose (mg/dL) Random Glucose 90 Calcium 9.0 Phosphorus 3.7 Magnesium 2.1 Total Bilirubin 0.9 AST 38 ALT 25 Alkaline Phosphatase 66 Total Creatine Kinase 1432 H Total Protein 7.2 Albumin 4.0 Globulin 3.2 Albumin/Globulin Ratio 1.2 Urine Opiates Screen Urine Methadone Screen Ur Barbiturates Screen Valproic Acid Ur Phencyclidine Scrn Ur Amphetamines Screen U Benzodiazepines Scrn U Oth Cocaine Metabols U Cannabinoids Screen Alcohol, Quantitative Blood Type O NEGATIVE Antibody Screen Negative 10/03/17 06:24 WBC RBC Hgb Hct MCV MCH MCHC RDW Plt Count MPV Neut % (Auto) Lymph % (Auto) Mcminn % (Auto) Eos % (Auto) Baso % (Auto) Neut # (Auto) Lymph # (Auto) Mcminn # (Auto) Eos # (Auto) Baso # (Auto) Neutrophils % (Manual) Lymphocytes % (Manual) Monocytes % (Manual) Platelet Estimate RBC Morphology PT INR APTT Sodium Potassium Chloride Carbon Dioxide Anion Gap BUN Creatinine Est GFR ( Amer) Est GFR (Non-Af Amer) POC Glucose (mg/dL) Random Glucose Calcium Phosphorus Magnesium Total Bilirubin AST ALT Alkaline Phosphatase Total Creatine Kinase Total Protein Albumin Globulin Albumin/Globulin Ratio Urine Opiates Screen Urine Methadone Screen Ur Barbiturates Screen Valproic Acid 75.5 Ur Phencyclidine Scrn Ur Amphetamines Screen U Benzodiazepines Scrn U Oth Cocaine Metabols U Cannabinoids Screen Alcohol, Quantitative Blood Type Antibody Screen - Impressions Impression: CT RUE: Anterior subcoracoid dislocation of the right shoulder with fracture of greater tuberosity, soft tissue swelling and bruising of the shoulder. atient Name / ID : HANDY GUSMAN / [id number] Exam Date : 10/02/2017 09:47:42 ( Approved ) Study Comment : Sex / Age : M / 27Y Creator : Alex Cooper MD Dictator : Alex Cooper MD Nurse Paralegal : Straight Knife Machine Cutter : Alex Cooper MD Approver2 : Report Date : 10/02/2017 10:17:43 My Comment : PROCEDURE: Radiographs of the Right Shoulder HISTORY: seizure COMPARISON: No prior. FINDINGS: BONES: Anterior dislocation at glenohumeral articulation with large displaced greater tuberosity fracture fragment. . JOINTS: Acromioclavicular joint preserved. SOFT TISSUES: Normal. OTHER FINDINGS: None. IMPRESSION: Anterior glenohumeral dislocation with greater tuberosity fracture enlarged displaced fragment. Assessment & Plan (1) Fracture dislocation of shoulder joint Assessment and Plan: Patient seen and examined by Dr. Osorio Right shoulder dislocation and greater tuberosity fracture unclear duration of dislocation, but per history provided by patient appears to be up to 3 days noted ecchyomosis to axilla is consistent with this Will plan for closed reduction of fracture in the operating room Will schedule for 10/04 pending medical optimization/clearance sling ice OT for wrist brace NPO p MN d/w Dr. Osorio, agrees with above Status: Acute Priority: High (2) Acute radial nerve palsy of right upper extremity Assessment and Plan: likely neuropraxia bracing monitor Status: Acute
[2017-10-03] MEDS: Divalproex 500 mg DR Tab PO SCH ×2 (10:05→17:28)
[2017-10-03] MEDS: Multiple Vitamins Tab PO SCH (10:05)
[2017-10-03] MEDS: Lactated Ringer's 1,000 ML IV SCH ×3 (10:09→21:32)
--- NOTE | 2017-10-03 14:06 | CP.PCM.PN ---
Subjective - Date & Time of Evaluation Date of Evaluation: 10/03/17 Time of Evaluation: 13:40 - Subjective Subjective: Hospitalist Progress Note Patient was seen and examined at 1:40 PM ICU Bed 8 27 year old male was admitted 10/02/17 for treatment of Seizure (Hx of Seizure and recently not using his medications due to wanting to drink alcohol) and Right Shoulder Dislocation/Right Humerus Fracture Currently upon FULL ROS NO dysphagia/odynopahgia NO soreness in throat NO cough NO sinus/nasal congestion NO fever/chills (+) Right Shoulder Pain NO chest pain/palpations NO SOB NO abdominal pain NO n/v/d/c NO burning pain with urination NO ANGELA NO lightheadedness/dizziness NO paresthesias Exam: General: AAOX3, NAD HEENT: NCA, EOMI, PERRLA, NO cervical/supraclavicular/submandibular lymphadenopathy, NO pharyngeal erythema/exudate, Nasal Turbinates are nonerythematous/nonedematous, Oral Mucosa is moist Cardio: NS1 and NS2, NO M/R/G Resp: CTA B/L, NO R/R/W GI: BSx4, Soft, NT, NO HSM, NO guarding/rebound tenderness Ext: Pulses are strong and equal, Capillary Refill is 2 seconds, Right Shoulder Edema (Patient with sling) Neuro: CN II through XII are grossly intact Assessment and Plan: 1). Right Shoulder Dislocation/Fracture Right Upper Arm CT without contrast: anterior subcoracoid dislocation of the right shoulder with fracture of the greater tuberosity Toradol 15 mg IV Q6H PRN Moderate and 30 mg IV Q6H PRN Severe Pain Patient for ORIF morning 10/04/[address] Rankin 2). Seizure with Hx Epilepsy History of noncompliance with treatment CT Head normal Depakote 500 mg PO 2x/day Keppra 500 mg PO 2x/day Valproic Acid Level is now normal at 75.5 Ativan 2 mg IV Q4H PRN Seizure Spoke with Neurology DETECTIVE CHIEF and patient is now cleared for ORIF as long as there are no further seizure activity 3). Rhabdomyolysis LR @ 125 ml per hour CPK at 1432 4). Elevated WBC with Left Shift Secondary to the trauma/stress? Chest X Ray without any active disease Urine Culture is negative F/U Blood Culture 5). Hx Schizophrenia Cogentin 2 mg PO 2x/day 6). Hx Tobacco Use Nicotine 21 mg TD 1x/day 7). Hx Daily Alcohol Use Folic Acid 1 mg PO 1x/day MVI PO 1x/day Thiamine 100 mg PO 1x/day Ativan 2 mg IV Q4H PRN Seizure 8). Polysubstance Abuse UDS positive for Cocain, MJ, Opioids Notified Orthopedics DAI Sidhu that patient has been cleared from Medicine and Neurology standpoint for ORIF planned for 10/04/17. Rc Holbrook D.O. Objective - Vital Signs/Intake and Output Vital Signs (last 24 hours): Temp Pulse Resp BP Pulse Ox 97.8 F 101 H 22 133/91 H 97 10/03/17 08:00 10/03/17 11:00 10/03/17 11:00 10/03/17 10:55 10/03/17 11:00 Intake and Output: 10/03/17 10/03/17 06:59 18:59 Intake Total 1625 1350 Output Total 0 450 Balance 1625 900 - Medications Medications: Current Medications Benztropine Mesylate (Cogentin) 2 mg PO BID [facility] Last Admin: 10/03/17 10:10 Dose: 2 mg Divalproex Sodium (Depakote Dr) 500 mg PO BID [facility] Last Admin: 10/03/17 10:05 Dose: 500 mg Folic Acid (Folic Acid) 1 mg PO DAILY [facility] Last Admin: 10/03/17 10:05 Dose: 1 mg Lactated Ringer's (Lactated Ringer's) 1,000 mls @ 125 mls/hr IV .Q8H [facility] Last Admin: 10/03/17 10:09 Dose: 125 mls/hr Ketorolac Tromethamine (Toradol) 30 mg IV Q6 PRN PRN Reason: Pain, severe (8-10) Last Admin: 10/03/17 03:11 Dose: 30 mg Ketorolac Tromethamine (Toradol) 15 mg IVP Q6 PRN PRN Reason: Pain, moderate (4-7) Levetiracetam (Keppra) 500 mg PO BID [facility] Last Admin: 10/03/17 10:05 Dose: 500 mg Lorazepam (Ativan) 2 mg IVP Q4H PRN PRN Reason: Seizure activity Multivitamins (Hexavitamin) 1 tab PO DAILY [facility] Last Admin: 10/03/17 10:05 Dose: 1 tab Nicotine (Nicoderm Cq) 1 patch TD DAILY [facility] Last Admin: 10/03/17 10:18 Dose: Not Given Pneumococcal Polyvalent Vaccine (Pneumovax 23 Vaccine) 0.5 ml IM .ONCE ONE Stop: 10/04/17 10:01 Thiamine HCl (Vitamin B1 Tab) 100 mg PO DAILY [facility] Last Admin: 10/03/17 10:05 Dose: 100 mg - Labs Labs: 10/03/17 06:24 10/03/17 06:24 PT 11.3 SECONDS (9.7-12.2) 10/02/17 12:58 INR 1.0 10/02/17 12:58 APTT 25 SECONDS (21-34) 10/02/17 12:58
--- NOTE | 2017-10-03 23:29 | CARD ---
APPROVED REPORT EKG Measurement Heart [id number] <Conclusion> Normal sinus rhythm Baseline artifact Otherwise normal EKG
[2017-10-04] MEDS ORDERED: Midazolam 2 MG/2 ML VIAL ONE ×3 (07:23→14:03)
[2017-10-04] MEDS ORDERED: Propofol 10 mg/ml Inj (20 ML) ONE ×3 (07:23→13:47)
[2017-10-04] MEDS ORDERED: Succinylcholine Chloride 20 mg/ml Syr (5 ml) IV ONE (07:27)
[2017-10-04] MEDS ORDERED: Rocuronium 10 mg/ml (5 ml) ONE ×2 (07:27→13:49)
[2017-10-04] MEDS ORDERED: Phenylephrine 10 mg/ml Inj ONE (07:28)
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
--- NOTE | 2017-10-04 07:53 | CP.PCM.PN ---
Subjective - Date & Time of Evaluation Date of Evaluation: 10/04/17 Time of Evaluation: 07:53 - Subjective Subjective: Mr. Fernandez was seen and examined at the bedside in ICU. He is alert, oriented in all spheres. He refused to cooperate during assessment. He is able to move left upper extremity and bilateral lower extremities. He can minimally move his right upper extremity with noticeable swelling in the right upper arm including the subclavian areas. His right arm is on a sling and being elevated with pillows. His UDOA showed positive for coccaine and cannaboids. His tavares proic level is 75.5. He is schedule for a close reduction of his right humerus fracture. There was no untoward events overnight. Objective - Vital Signs/Intake and Output Vital Signs (last 24 hours): Temp Pulse Resp BP Pulse Ox 98.7 F 102 H 20 126/80 95 10/03/17 23:05 10/03/17 23:05 10/03/17 23:05 10/03/17 23:05 10/03/17 23:05 Intake and Output: 10/04/17 10/04/17 06:59 18:59 Intake Total 875 Balance 875 - Medications Medications: Current Medications Benztropine Mesylate (Cogentin) 2 mg PO BID [facility] Last Admin: 10/03/17 17:28 Dose: 2 mg Divalproex Sodium (Depakote Dr) 500 mg PO BID [facility] Last Admin: 10/03/17 17:28 Dose: 500 mg Folic Acid (Folic Acid) 1 mg PO DAILY [facility] Last Admin: 10/03/17 10:05 Dose: 1 mg Lactated Ringer's (Lactated Ringer's) 1,000 mls @ 100 mls/hr IV .Q10H [facility] Ketorolac Tromethamine (Toradol) 30 mg IV Q6 PRN PRN Reason: Pain, severe (8-10) Last Admin: 10/03/17 19:48 Dose: 30 mg Ketorolac Tromethamine (Toradol) 15 mg IVP Q6 PRN PRN Reason: Pain, moderate (4-7) Levetiracetam (Keppra) 500 mg PO BID [facility] Last Admin: 10/03/17 17:28 Dose: 500 mg Lorazepam (Ativan) 2 mg IVP Q4H PRN PRN Reason: Seizure activity Multivitamins (Hexavitamin) 1 tab PO DAILY [facility] Last Admin: 10/03/17 10:05 Dose: 1 tab Nicotine (Nicoderm Cq) 1 patch TD DAILY [facility] Last Admin: 10/03/17 10:18 Dose: Not Given Pneumococcal Polyvalent Vaccine (Pneumovax 23 Vaccine) 0.5 ml IM .ONCE ONE Stop: 10/04/17 10:01 Thiamine HCl (Vitamin B1 Tab) 100 mg PO DAILY [facility] Last Admin: 10/03/17 10:05 Dose: 100 mg - Labs Labs: 10/03/17 06:24 10/03/17 06:24 PT 11.3 SECONDS (9.7-12.2) 10/02/17 12:58 INR 1.0 10/02/17 12:58 APTT 25 SECONDS (21-34) 10/02/17 12:58 - Constitutional Appears: No Acute Distress - Head Exam Head Exam: NORMAL INSPECTION - Neurological Exam Neurological Exam: Alert, Awake Neuro motor strength exam: Left Upper Extremity: 5, Right Upper Extremity: 2/1, Left Lower Extremity: 5, Right Lower Extremity: 5 Additional comments: Neurological improved he is more cooperative today. He is able to follow simple commands. Assessment and Plan (1) Seizure disorder Assessment & Plan: Case discussed with Dr. Lewis, continue all current medical regimen including AED. Patient is clear for surgery from neurology for his neuro. clearance. Status: Acute
[2017-10-04] MEDS: Multiple Vitamins Tab PO SCH (09:19)
[2017-10-04] MEDS: Lactated Ringer's 1,000 ML IV SCH ×2 (09:19→17:35)
[2017-10-04] MEDS: Divalproex 500 mg DR Tab PO SCH ×2 (09:40→17:32)
[2017-10-04] MEDS ORDERED: Pneumococcal 23-Valent Vaccine IM ONE (10:00)
[2017-10-04] MEDS ORDERED: Influenza Vaccine 60 mcg/0.5 mL SYR (4YR UP) IM ONE (10:00)
[2017-10-04 11:21] LABS: BASO % 0.4 % (0.0-2.0); EOS # 0.1 K/uL (0.0-0.7); EOS % 0.7 % (0.0-4.0); LYMPH # 1.2 K/uL (1.0-4.3); LYMPH % 11.3 % (20.0-40.0); MEAN CELL VOLUME 89.6 fL (80.0-94.0); MEAN CORPUSCULAR HEMOGLOBIN 31.4 pg (27.0-31.0); MEAN CORPUSCULAR HGB CONC 35.1 g/dL (33.0-37.0); MEAN PLATELET VOLUME 8.1 fL (7.2-11.7); MONO # 1.1 K/uL (0.0-0.8); MONO % 10.5 % (0.0-10.0); NEUT # 8.4 K/uL (1.8-7.0); NEUT % 77.1 % (50.0-75.0); RBC 3.4 Mil/uL (4.40-5.90); RED CELL DISTRIBUTION WIDTH 13.5 % (11.5-14.5); WHITE BLOOD COUNT 10.9 K/uL (4.8-10.8)
[2017-10-04 11:35] LABS: ALB/GLOB RATIO 1.2 (1.0-2.1); ALBUMIN 3.5 g/dL (3.5-5.0); ALT/SGPT 24 U/L (21-72); AST/SGOT 44 U/L (17-59); BLOOD UREA NITROGEN 8 mg/dL (9-20); CALCIUM 8.5 mg/dl (8.6-10.4); GFR AFRICAN-AMERICAN > 60; GFR NON-AFRICAN AMERICAN > 60
[2017-10-04 11:37] LABS: HEMOGLOBIN 10.7 g/dL (12.0-18.0)
[2017-10-04] MEDS ORDERED: ceFAZolin IV 2 gm in Dextrose 2 GM/50 ML BAG IVPB ONE (13:35)
[2017-10-04] MEDS ORDERED: Nitroglycerin 50mg in D5W 50 MG/250 ML BOTTLE IV ONE (13:54)
[2017-10-04] MEDS ORDERED: Neostigmine Methylsulfate 3mg/3ml Syringe IV ONE (14:47)
--- NOTE | 2017-10-04 15:07 | PCM.SURG1 ---
Surgeon's Initial Post Op Note - Surgeon's Notes Surgeon: Ivan Osorio MD Sand Technician: Magaly Clement PA-C Type of Anesthesia: General Endo Anesthesia Administered By: Dr. Montero/Miguel Angel ZAMORA Pre-Operative Diagnosis: Right shoulder dislocation, greater tuberosity fracture Operative Findings: unstable with flexion Post-Operative Diagnosis: same Operation Performed: RIght shoulder closed reduction. Interpretation of fluoroscopic imaging Specimen/Specimens Removed: none Estimated Blood Loss: EBL {In ML}: 0 Blood Products Given: N/A Drains Used: No Drains Post-Op Condition: Fair Date of Surgery/Procedure: 10/04/17 Time of Surgery/Procedure: 15:09
[2017-10-04] MEDS ORDERED: Albuterol-Ipratrop 3 mg / 0.5 (3 ml) UD ONE (15:15)
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
[2017-10-04] MEDS ORDERED: HYDROmorphone 0.5 mg/0.5 ml ISec IVP PRN (15:21)
[2017-10-04] MEDS ORDERED: Albuterol 0.083% Inhal Sol (2.5 mg/3 mL) UD INH STA (15:24)
[2017-10-04] MEDS ORDERED: Albuterol-Ipratrop 3 mg / 0.5 (3 ml) UD INH STA (16:02)
--- NOTE | 2017-10-04 16:10 | RAD ---
INTRAOPERATIVE FLUOROSCOPY HISTORY: Right shoulder fracture. TECHNIQUE/FINDINGS: Fluoroscopic guidance was provided by Radiology department. Please see operative report for full details. 4 images were provided. IMPRESSION: As above
[2017-10-05 07:33] LABS: BASO % 0.5 % (0.0-2.0); EOS # 0.3 K/uL (0.0-0.7); EOS % 3.2 % (0.0-4.0); HEMOGLOBIN 10.6 g/dL (12.0-18.0); LYMPH # 1.8 K/uL (1.0-4.3); LYMPH % 17.8 % (20.0-40.0); MEAN CELL VOLUME 90.7 fL (80.0-94.0); MEAN CORPUSCULAR HEMOGLOBIN 31.2 pg (27.0-31.0); MEAN CORPUSCULAR HGB CONC 34.4 g/dL (33.0-37.0); MEAN PLATELET VOLUME 7.8 fL (7.2-11.7); NEUT # 7.1 K/uL (1.8-7.0); NEUT % 68.5 % (50.0-75.0); RBC 3.4 Mil/uL (4.40-5.90); RED CELL DISTRIBUTION WIDTH 13.5 % (11.5-14.5); WHITE BLOOD COUNT 10.3 K/uL (4.8-10.8)
[2017-10-05 08:07] LABS: ALB/GLOB RATIO 1.2 (1.0-2.1); ALBUMIN 3.8 g/dL (3.5-5.0); ALT/SGPT 21 U/L (21-72); AST/SGOT 47 U/L (17-59); BLOOD UREA NITROGEN 5 mg/dL (9-20); CALCIUM 8.9 mg/dl (8.6-10.4); GFR AFRICAN-AMERICAN > 60; GFR NON-AFRICAN AMERICAN > 60
[2017-10-05 08:39] VITALS: BP 133/81; PULSE 90; RESP 18; TEMP 98.7; O2SAT 96
--- NOTE | 2017-10-05 08:42 | CP.PCM.PN ---
Subjective - Date & Time of Evaluation Date of Evaluation: 10/05/17 Time of Evaluation: 08:40 - Subjective Subjective: Mr. Sandra was seen and examined at the bedside. He is alert, oriented in all spheres. He denies any headache, dizziness, lightheadedness, blurred vision, diplopia. He claims of numbness in his right 4th finger and 5th finger. However , his right upper extremity is swollen due to his recent humerus fracture and intervention. At present, the right upper extremity is elevated with a special sling, but the fingers are hyperextend. He had received ice-pack overnight. He denies any seizure-like activity overnight. There was no untoward events overnight. Objective - Vital Signs/Intake and Output Vital Signs (last 24 hours): Temp Pulse Resp BP Pulse Ox 98.7 F 90 18 133/81 96 10/05/17 08:38 10/05/17 08:38 10/05/17 08:38 10/05/17 08:38 10/05/17 08:38 - Medications Medications: Current Medications Benztropine Mesylate (Cogentin) 2 mg PO BID [facility] Last Admin: 10/04/17 17:32 Dose: 2 mg Divalproex Sodium (Depakote Dr) 500 mg PO BID [facility] Last Admin: 10/04/17 17:32 Dose: 500 mg Folic Acid (Folic Acid) 1 mg PO DAILY [facility] Last Admin: 10/04/17 09:19 Dose: Not Given Lactated Ringer's (Lactated Ringer's) 1,000 mls @ 100 mls/hr IV .Q10H [facility] Last Admin: 10/04/17 17:35 Dose: 100 mls/hr Ketorolac Tromethamine (Toradol) 30 mg IV Q6 PRN PRN Reason: Pain, severe (8-10) Last Admin: 10/03/17 19:48 Dose: 30 mg Ketorolac Tromethamine (Toradol) 15 mg IVP Q6 PRN PRN Reason: Pain, moderate (4-7) Levetiracetam (Keppra) 500 mg PO BID [facility] Last Admin: 10/04/17 17:32 Dose: 500 mg Lorazepam (Ativan) 2 mg IVP Q4H PRN PRN Reason: Seizure activity Multivitamins (Hexavitamin) 1 tab PO DAILY [facility] Last Admin: 10/04/17 09:19 Dose: Not Given Nicotine (Nicoderm Cq) 1 patch TD DAILY [facility] Last Admin: 10/04/17 09:19 Dose: Not Given Thiamine HCl (Vitamin B1 Tab) 100 mg PO DAILY [facility] Last Admin: 10/04/17 09:14 Dose: 100 mg - Labs Labs: 10/05/17 07:24 10/05/17 07:24 PT 11.3 SECONDS (9.7-12.2) 10/02/17 12:58 INR 1.0 10/02/17 12:58 APTT 25 SECONDS (21-34) 10/02/17 12:58 - Constitutional Appears: No Acute Distress - Head Exam Head Exam: NORMAL INSPECTION - Neurological Exam Neurological Exam: Alert, Awake, Oriented x3 Neuro motor strength exam: Left Upper Extremity: 5, Right Upper Extremity: 2/1, Left Lower Extremity: 5, Right Lower Extremity: 5 Additional comments: numbness in his right 4th finger and 5th finger. However, his right upper extremity is swollen due to his recent humerus fracture and intervention. Sensation is decrease on his right hand. Assessment and Plan (1) Seizure disorder Assessment & Plan: Case discussed with Dr. Lewis, continue all current medical therapy including AED. Recommend MRI of the right upper arm including shoulder to evaluate any nerve pathology. If its negative, will order dexamethasone to decrease the swelling of the right upper extremity. Status: Acute
[2017-10-05] MEDS: Multiple Vitamins Tab PO SCH (09:00)
[2017-10-05] MEDS: Divalproex 500 mg DR Tab PO SCH (09:00)
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
[2017-10-05] MEDS ORDERED: Pantoprazole 40 mg EC Tab PO SCH (10:00)
--- NOTE | 2017-10-05 10:12 | CP.PCM.PN ---
Subjective - Date & Time of Evaluation Date of Evaluation: 10/05/17 Time of Evaluation: 10:06 - Subjective Subjective: Patient states he still has a lot of pain, but that it is definitely a little better today. Numbness and weakness unchanged. Explained to patient that shoulder is very unstable, and not to move arm or remove immobilizer for risk of dislocation. Also explained in detail that he will need surgery ORIF in the future after swelling improves. He is to wear immobilizer at all times until he follows up in the office with Dr. Osorio in approx [address] Osorio recommends patient follow up with upper extremity specialist due to nature of injury, prolonged dislocation prior to presentation to ER, and complicating factor of radial nerve palsy, possible brachial plexopathy. Patient verbalized understanding and agrees to follow up immediately upon discharge. Objective - Vital Signs/Intake and Output Vital Signs (last 24 hours): Temp Pulse Resp BP Pulse Ox 98.7 F 90 18 133/81 96 10/05/17 08:38 10/05/17 08:38 10/05/17 08:38 10/05/17 08:38 10/05/17 08:38 - Medications Medications: Current Medications Benztropine Mesylate (Cogentin) 2 mg PO BID [facility] Last Admin: 10/05/17 09:00 Dose: 2 mg Divalproex Sodium (Depakote Dr) 500 mg PO BID [facility] Last Admin: 10/05/17 09:00 Dose: 500 mg Docusate Sodium (Colace) 100 mg PO BID [facility] Folic Acid (Folic Acid) 1 mg PO DAILY [facility] Last Admin: 10/05/17 09:00 Dose: 1 mg Lactated Ringer's (Lactated Ringer's) 1,000 mls @ 100 mls/hr IV .Q10H [facility] Last Admin: 10/04/17 17:35 Dose: 100 mls/hr Ketorolac Tromethamine (Toradol) 30 mg IV Q6 PRN PRN Reason: Pain, severe (8-10) Last Admin: 10/03/17 19:48 Dose: 30 mg Ketorolac Tromethamine (Toradol) 15 mg IVP Q6 PRN PRN Reason: Pain, moderate (4-7) Levetiracetam (Keppra) 500 mg PO BID [facility] Last Admin: 10/05/17 08:59 Dose: 500 mg Lorazepam (Ativan) 2 mg IVP Q4H PRN PRN Reason: Seizure activity Multivitamins (Hexavitamin) 1 tab PO DAILY [facility] Last Admin: 10/05/17 09:00 Dose: 1 tab Nicotine (Nicoderm Cq) 1 patch TD DAILY [facility] Last Admin: 10/05/17 09:05 Dose: Not Given Pantoprazole Sodium (Protonix Ec Tab) 40 mg PO DAILY [facility] Last Admin: 10/05/17 09:04 Dose: 40 mg Thiamine HCl (Vitamin B1 Tab) 100 mg PO DAILY [facility] Last Admin: 10/05/17 09:00 Dose: 100 mg - Labs Labs: 10/05/17 07:24 10/05/17 07:24 PT 11.3 SECONDS (9.7-12.2) 10/02/17 12:58 INR 1.0 10/02/17 12:58 APTT 25 SECONDS (21-34) 10/02/17 12:58 - Extremities Exam Additional comments: shoulder immob and wrist splint intact. No active extension of fingers. patient complains of tingling to ring and pinky finger, but sensation to light touch intact volarly and dorsally. He admits to some numbness to dorsum of hand over 2nd/3rd MC area. +flexion of fingers. Patient able to shrug shoulder, but unable to assess deltoid function at this time. Sensation intact to axillary n distrib lateral shoulder. Assessment and Plan (1) Fracture dislocation of shoulder joint Assessment & Plan: POD#1 s/p closed reduction in OR intraoperative imaging demonstrates reduction of dislocation, but greater tuberosity fragment is still displaced shoulder is unstable immobilizer at all times will need oRIF after swelling improves f/u Dr. osorio in office within [address] Osorio recommending follow up with upper extremity specialist as well Status: Acute (2) Acute radial nerve palsy of right upper extremity Assessment & Plan: possible brachial plexopathy per Dr. Osorio noted imaging ordered by neurology Status: Acute
[2017-10-05] MEDS: Lactated Ringer's 1,000 ML IV SCH (14:10)
--- NOTE | 2017-10-05 15:13 | CP.PCM.PCO ---
Physician Communication Note - Physician Communication Note Physician Communication Note: Patient signed AMA. AMA formed signed by PT, me, [employer] Mary
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
--- NOTE | 2017-10-05 22:25 | CARD ---
APPROVED REPORT EKG Measurement Heart [id number] <Conclusion> Sinus tachycardia Otherwise normal ECG
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
--- NOTE | 2017-10-08 11:14 | PCM.EEG ---
Electroencephalogram Report - Electroencephalogram Report Procedure Date: 10/04/17 Interpretation: Normal awake and drowsy eeg Impression: preliminary - dr ayon
== END 2017-10-05 15:30 | disposition left against medical advice (07) | DRG 101 ==
LOC: C.ER 09:21 → C.9E 11:32 → UNDOADMIN 11:32 → C.6T 13:04 → C.9E 13:04 → C.6T 13:59 → C.9E 14:36 → C.9I 14:36 → C.9E 14:48 → C.9I 14:48 → C.6T 14:48 → C.9I 15:10 → C.6T 10-03 14:23
PROVIDERS: ADMIT Family Medicine; ATTEND Family Medicine
PROC: 0PSCXZZ Reposition Right Humeral Head, External Approach (ICD-10-PCS; principal; 2017-10-04 13:00)
DX: G40.409 Other generalized epilepsy and epileptic syndromes, not intractable, without status epilepticus (principal); M62.82 Rhabdomyolysis; F20.9 Schizophrenia, unspecified; N19 Unspecified kidney failure; F10.230 Alcohol dependence with withdrawal, uncomplicated; S42.251A Displaced fracture of greater tuberosity of right humerus, initial encounter for closed fracture; W19.XXXA Unspecified fall, initial encounter; G54.0 Brachial plexus disorders; F11.10 Opioid abuse, uncomplicated; F17.210 Nicotine dependence, cigarettes, uncomplicated; G56.31 Lesion of radial nerve, right upper limb; X58.XXXA Exposure to other specified factors, initial encounter; Z91.14 Patient's other noncompliance with medication regimen; Y90.0 Blood alcohol level of less than 20 mg/100 ml; S64.21XA Injury of radial nerve at wrist and hand level of right arm, initial encounter

== ENCOUNTER 2017-10-08 17:04 | Emergency (ER) | payer MEDICARE, MEDICAID ==
[2017-10-08 17:05] VITALS: BMI 28.2
[2017-10-08 17:29] VITALS: TEMP 98.5; O2SAT 100
[2017-10-08 18:25] VITALS: BP 136/88; PULSE 110; RESP 18
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
--- NOTE | 2017-10-08 18:27 | C.PDOC ---
Time Seen by Provider: 10/08/17 17:34 Chief Complaint (Nursing): Upper Extremity Problem/Injury Past Medical History Vital Signs: Last Vital Signs Temp 98.5 F 10/08/17 17:20 Pulse 112 H 10/08/17 17:20 Resp 19 10/08/17 17:20 BP 153/90 H 10/08/17 17:20 Pulse Ox 100 10/08/17 17:20 - Medical History PMH: Schizophrenia, Seizures Denies: Chronic Kidney Disease Surgical History: Denies: Pacemaker - [facility] Procedures REPOSITION RIGHT HUMERAL HEAD, EXTERNAL APPROACH (10/02/17) Family History: States: Unknown Family Hx - Social History Hx Tobacco Use: Yes Hx Alcohol Use: Yes Hx Substance Use: Yes - Immunization History Hx Tetanus Toxoid Vaccination: No Hx Influenza Vaccination: No Hx Pneumococcal Vaccination: No ED Course And Treatment O2 Sat by Pulse Oximetry: 100 Disposition - Disposition
== END 2017-10-08 18:57 | disposition home or self-care (01) ==
LOC: C.ER 17:04
DX: S42.291G Other displaced fracture of upper end of right humerus, subsequent encounter for fracture with delayed healing (principal); X58.XXXD Exposure to other specified factors, subsequent encounter